=== PATIENT | female | born 1955 | race Caucasian/White ===

== ENCOUNTER → 2016-10-20 | Outpatient (CLI) | payer BC ==
[2016-10-20 07:03] LABS: ADD UMIC YES; URINE BILIRUBIN (Dip) NEGATIVE (NEGATIVE); URINE BLOOD (Dip) 1+ (NEGATIVE); URINE COLOR LT. YELLOW (YELLOW); URINE GLUCOSE (Dip) NEGATIVE (NEGATIVE); URINE KETONES (Dip) NEGATIVE (NEGATIVE); URINE LEUKOCYTE ESTERASE (Dip) 1+ (NEGATIVE); URINE NITRITE (Dip) NEGATIVE (NEGATIVE); URINE TOTAL PROTEIN (Dip) NEGATIVE (NEGATIVE); URINE UROBILINOGEN (Dip) 0.2 E.U./dL (0.1-1.0)
[2016-10-20 07:21] LABS: URINE RBCS 0-2 /HPF ([, 0])
== END | disposition home or self-care (01) ==
LOC: LAB 06:00
PROVIDERS: ATTEND Internal Medicine
DX: N39.0 Urinary tract infection, site not specified (principal)
CPT/HCPCS: 81001; 81003; 87086

== ENCOUNTER → 2017-07-21 | Outpatient (CLI) | payer BC ==
--- NOTE | 2017-07-21 14:40 | RADRPT ---
PROCEDURE: US Thyroid. CLINICAL INDICATION: Thyroid nodule. Palpable fullness. TECHNIQUE: Multiple sonographic images of the thyroid were obtained. Transverse and sagittal imagi ng of the gland and bharat-thyroidal tissues was performed with a high frequency linear array transduc er. Color interrogation was performed as well. The images were reviewed on a PACS workstation. COMPARISON: No prior studies are available for comparison. FINDINGS: Thyroid Size: The right lobe measures 5.1 x 1.6 x 1.9 cm. The left lobe measures 5.1 x 1.7 x 1.6 cm. The isthmus measures 0.5 cm. Appearance: Echogenicity: Normal Vascularity: Normal Right thyroid nodules: Nodule #1: Size: 0.8 x 1.4 x 1.9 cm Location: Medial, mid pole. Composition: Cystic. Echogenicity: Anechoic. Shape: Wider than tall. Margin: Smooth. Echogenic foci: None. TI-RADS 1. Benign. No further evaluation required. Several smaller hypoechoic nodules are present in the right lobe, all measuring less than 1 cm. Left thyroid nodules: Nodule #1: Size: 1.5 x 1.5 x 1.5 cm Location: Posterior, mid to lower pole. Composition: Spongiform. Echogenicity: Hypoechoic. Shape: Wider than tall. Margin: Smooth. Echogenic foci: None. TI-RADS 2. Not suspicious. No further evaluation required. Several smaller hypoechoic nodules are present in the left lobe, all measuring less than 1 cm. Additional: Adenopathy: None Soft tissues: Normal IMPRESSION: 1. Benign cystic nodule in the right lobe. 2. Benign Spongiform nodule in the left lobe. 3. Several small less than 1 cm in nodules bilaterally, benign. 4. TI-RADS 0. RPTAT: QQ TI-RADS 1: Benign, <2% malignancy risk: No FNA TI-RADS 2: Not suspicious, <2% malignancy risk: No FNA TI-RADS 3: Mildly suspicious, 5% malignancy risk: FNA if ? 2.5 cm TI-RADS 4: Moderately suspicious, 5-20% malignancy risk: FNA if ? 1.5 cm TI-RADS 5: Highly suspicious, >20% malignancy risk: FNA if ? 1.0 cm .Fredi Lees MD, MD Date Time Electronically viewed and signed by .Fredi Lees MD, MD on 07/21/2017 14:39 .R/
== END | disposition home or self-care (01) ==
LOC: U/S 09:30
PROVIDERS: ATTEND Internal Medicine
DX: E04.1 Nontoxic single thyroid nodule (principal)
CPT/HCPCS: 76536

== ENCOUNTER → 2018-02-08 | Outpatient (CLI) | END | disposition home or self-care (01) ==

== ENCOUNTER → 2018-06-30 | Outpatient (CLI) | END | disposition home or self-care (01) ==

== ENCOUNTER 2018-07-12 05:45 | Day surgery (SDC) | END 2018-07-12 13:25 | disposition home or self-care (01) ==

== ENCOUNTER 2018-11-29 06:33 | Day surgery (SDC) | payer BC ==
[~2018-11-29] VITALS: Ht 157.5 cm; Wt 72.9 kg
[2018-11-29 06:55] VITALS: Ht 157.5 cm; Wt 72.9 kg
[2018-11-29] MEDS ORDERED: PEPCID PO (07:16)
[2018-11-29 07:30] VITALS: BP 124/75; PULSE 69; RESP 18
[2018-11-29] MEDS ORDERED: MIDAZOLAM 1 MG/ML 2 ML INJ ONE ×5 (08:59→09:00)
[2018-11-29] MEDS ORDERED: FENTAnyl 50 MCG/ML VIAL ONE (09:00)
[2018-11-29 09:24] VITALS: BP 151/81; RESP 16
--- NOTE | 2018-11-29 12:48 | CONS ---
DATE OF ADMISSION: 11/29/2018 DATE OF CONSULTATION: PATIENT NAME: MARTELL COHEN TYPE OF CONSULTATION: Preoperative gastroenterology. HISTORY OF PRESENT ILLNESS: Ms. Martell Cohen is a 63-year-old female patient who has been referr ed to me for further evaluation of upper abdominal pain not responding to therapy with Pepcid. No pa st history of peptic ulcer disease. She is not taking any nonsteroidal anti-inflammatory agents. Sh merced used to take Motrin which she has stopped several months ago. Her appetite has been good and there is no history of weight loss. No history of gallstones or liver disease. The patient has also noti amrit a change in bowel habit. No past history of colon neoplasm. The patient needs screening colonos copy. Not a hypertensive or diabetic. No heart disease, lung problem or kidney disease. SOCIAL HISTORY: The patient smokes electronic cigarettes. No alcohol abuse. FAMILY HISTORY: No family history of gastrointestinal tract neoplasm. ALLERGIES: NO DRUG ALLERGIES. MEDICATIONS: Pepcid. PHYSICAL EXAMINATION: VITAL SIGNS: She is 5 feet, 2 inches tall and weighs 160 pounds. HEART: Normal heart sounds. LUNGS: Clear. ABDOMEN: Soft. No masses. Normal bowel sounds. NEUROLOGIC: Normal. IMPRESSION: 1. Upper abdominal pain, not responding to therapy with Pepcid. 2. The patient has been taking Motrin, which she has discontinued. 3. The patient needs screening colonoscopy. 4. The patient smokes electronic cigarettes. PLAN: 1. Endoscopic examination for further evaluation of upper abdominal pain. 2. Abdominal ultrasound. 3. Screening colonoscopy. The procedures and possible complications are well explained to the patient. She understands and con sents to the procedures. I thank you once again. With warmest personal regards, Dictated By: AKBAR KELLY/MODESTA Conf#: [id number] DID#: [id number]
== END 2018-11-29 11:42 | disposition home or self-care (01) ==
LOC: GIL 06:33
PROVIDERS: ATTEND Internal Medicine Gastroenterology
DX: Z12.11 Encounter for screening for malignant neoplasm of colon (principal); K29.30 Chronic superficial gastritis without bleeding; K64.8 Other hemorrhoids; K64.4 Residual hemorrhoidal skin tags; K44.9 Diaphragmatic hernia without obstruction or gangrene; K21.9 Gastro-esophageal reflux disease without esophagitis
CPT/HCPCS: 43239; 45378; 88305; 88312; J2250; J3010

== ENCOUNTER → 2018-12-22 | Outpatient (CLI) | payer BC ==
[~2018-12-22] MED LIST: PEPCID PO
== END | disposition home or self-care (01) ==
LOC: LAB 14:46
PROVIDERS: ATTEND Internal Medicine
DX: R73.03 Prediabetes (principal)
CPT/HCPCS: 80053; 80061; 81001; 82652; 84443; 85025

== ENCOUNTER → 2018-12-22 | Outpatient (CLI) | payer BC | END | disposition home or self-care (01) | LOC: U/S 12:52 | PROVIDERS: ATTEND Internal Medicine Gastroenterology | DX: R10.9 Unspecified abdominal pain (principal) | CPT/HCPCS: 76700 ==

== ENCOUNTER → 2018-12-22 | Outpatient (CLI) | payer BC | END | disposition home or self-care (01) | LOC: U/S 12:52 | PROVIDERS: ATTEND Student in an Organized Health Care Education/Training Program | DX: E04.1 Nontoxic single thyroid nodule (principal) | CPT/HCPCS: 76536 ==

== ENCOUNTER → 2019-01-05 | Outpatient (CLI) | payer BC | END | disposition home or self-care (01) | LOC: LAB 14:37 | PROVIDERS: ATTEND Student in an Organized Health Care Education/Training Program | DX: R94.6 Abnormal results of thyroid function studies (principal) | CPT/HCPCS: 80053; 84436; 84439; 84443; 84479 ==

== ENCOUNTER → 2019-01-05 | Outpatient (CLI) | payer BC | END | disposition home or self-care (01) | LOC: LAB 14:34 | PROVIDERS: ATTEND Internal Medicine | DX: E04.9 Nontoxic goiter, unspecified (principal); R74.0 Nonspecific elevation of levels of transaminase and lactic acid dehydrogenase [LDH]; M12.9 Arthropathy, unspecified | CPT/HCPCS: 80076; 84439; 84481; 85651; 86140; 86430; 86704; 86709; 86803; 87340 ==

== ENCOUNTER → 2019-05-09 | Outpatient (CLI) | payer BC | END | disposition home or self-care (01) | LOC: LAB 06:24 | PROVIDERS: ATTEND Internal Medicine Gastroenterology | DX: K29.70 Gastritis, unspecified, without bleeding (principal) | CPT/HCPCS: 87338 ==